=== PATIENT | male | born 1985 | race Caucasian/White ===

== ENCOUNTER 2016-09-16 14:14 | Emergency (ER) | payer OTHER ==
[2016-09-16 14:31] VITALS: BP 157/66
--- NOTE | 2016-09-16 15:36 | UC ---
Complaint Male HPI - HPI Summary HPI Summary: complaint of penile discharge whitish-joseph and the tip of penis is red and sensitive feels like he is getting a sore throat symptoms started yesterday denies dysuria, fever and chills was exposed 2 weeks ago to gonorrhea partner was treated but he wasn't treated had some labwork today for HIV syphillis - History of Current Complaint Chief Complaint: UCGU Stated Complaint: PERSONAL ISSUE Time Seen by Provider: 09/16/16 15:28 Hx Obtained From: Patient - Allergies/Home Medications Allergies/Adverse Reactions: Allergies Allergy/AdvReac Type Severity Reaction Status Date / Time No Known Allergies Allergy Verified 09/16/16 14:31 Home Medications: Home Medications Tenofovir/Emtricitabine(*) [Truvada*] 200 - 300 mg PO DAILY 09/16/16 [History Confirmed 09/16/16] PMH/Surg Hx/FS Hx/Imm Hx Previously Healthy: Yes - Surgical History Surgery Procedure, Year, and Place: tonsillectomy - Family History Known Family History: Negative: Cardiac Disease, Hypertension, Diabetes - Social History Occupation: Employed Full-time Alcohol Use: Occasionally Substance Use Type: None Smoking Status (MU): Never Smoked Tobacco Review of Systems Constitutional: Negative Skin: Negative Eyes: Negative ENT: Sore Throat Respiratory: Negative Cardiovascular: Negative Gastrointestinal: Negative Genitourinary: Other Motor: Negative Neurovascular: Negative Musculoskeletal: Negative Neurological: Negative Psychological: Negative All Other Systems Reviewed And Are Negative: Yes Physical Exam Triage Information Reviewed: Yes Appearance: No Pain Distress, Well-Nourished Vital Signs: Initial Vital Signs Temp 98.5 F 09/16/16 14:27 Pulse 76 09/16/16 14:27 Resp 16 09/16/16 14:27 BP 157/66 09/16/16 14:27 Pulse Ox 100 09/16/16 14:27 Vital Signs Reviewed: Yes Eyes: Positive: Conjunctiva Clear ENT: Positive: Pharyngeal erythema, TMs normal. Negative: Nasal congestion, Nasal drainage Neck: Positive: No Lymphadenopathy Respiratory: Positive: Lungs clear, Normal breath sounds, No respiratory distress Cardiovascular: Positive: RRR, No Murmur, Pulses Normal Abdomen Description: Positive: Nontender, Soft Bowel Sounds: Positive: Present Musculoskeletal: Positive: No Edema Neurological: Positive: Alert Psychological Exam: Normal Skin: Positive: Other - - tip of penis erythematous - no discharge noted, testiles non tender, no hernias Complaint Male Course/Dx - Course Course Of Treatment: exam completed. will treat for GC/Chlamydia d/t symptoms and partner who tested positive for gonnorhea - Differential Dx/Diagnosis Provider Diagnoses: STD testing. penile discharge. elevated blood pressure Discharge - Discharge Plan Condition: Stable Disposition: HOME Patient Education Materials: Condom Use (ED), Sexually Transmitted Diseases (ED ) Referrals: Gigi SALCEDO,Quintin Theodore [Primary Care Provider] - Additional Instructions: Your blood pressure is elevated. Please contact your primary care provider for further evaluation. Increase fluids and rest. Please review your discharge instructions. If your symptoms do not improve please call your primary care provider or return to urgent care.
[2016-09-16] MEDS ORDERED: cefTRIAXone VIAL(*) 250 MG VIAL IM ONE (15:42)
[2016-09-16] MEDS ORDERED: Azithromycin TAB* 250 MG PO ONE (15:43)
[2016-09-16] MEDS ORDERED: Lidocaine 1% MPF* 2 ML VIAL ONE (15:51)
== END 2016-09-16 16:27 | disposition home or self-care (01) ==
LOC: UCEAST 14:14
DX: R36.9 Urethral discharge, unspecified (principal); Z20.2 Contact with and (suspected) exposure to infections with a predominantly sexual mode of transmission; Z11.3 Encounter for screening for infections with a predominantly sexual mode of transmission; R03.0 Elevated blood-pressure reading, without diagnosis of hypertension
CPT/HCPCS: 87491; 87591; 96372; 99202; A9270-GY; G0463; J0696